=== PATIENT | female | born 1985 | race Caucasian/White ===

== ENCOUNTER 2016-11-07 17:50 | Emergency (ER) | payer OTHER ==
[2016-11-07 18:10] VITALS: BMI 33.6
[2016-11-07 18:14] VITALS: TEMP 98.8; O2SAT 100
[2016-11-07] MEDS ORDERED: Sodium Chloride 0.9% 1,000 ML IV ONE (19:14)
[2016-11-07] MEDS ORDERED: Sodium Chloride 0.9% 1,000 ML ONE (19:31)
[2016-11-07 19:57] LABS: BASO # 0.1 K/uL (0.0-0.2); BASO % 0.5 % (0.0-2.0); EOS # 0.2 K/uL (0.0-0.7); EOS % 1.5 % (0.0-4.0); HEMATOCRIT 34.3 % (34.0-47.0); LYMPH # 3.3 K/uL (1.0-4.3); LYMPH % 28.8 % (20.0-40.0); MEAN CELL VOLUME 75.4 fL (81.0-99.0); MEAN CORPUSCULAR HEMOGLOBIN 24.7 pg (27.0-31.0); MEAN CORPUSCULAR HGB CONC 32.7 g/dL (33.0-37.0); MONO # 0.9 K/uL (0.0-0.8); MONO % 7.5 % (0.0-10.0); NRBC % 0.1 % (0.0-2.0); RED CELL DISTRIBUTION WIDTH 14.2 % (11.5-14.5); WHITE BLOOD COUNT 11.4 K/uL (4.8-10.8)
--- NOTE | 2016-11-07 20:02 | C.PDOC ---
History Of Present Illness 31 year old patient presents to the emergency department complaining of vaginal bleeding for the past 2-3 days. Patient denies any associated pain. Patient's last menstrual period was on 10/12/16. Patient denies fever, shortness of breath , nausea, vomiting, abdominal pain, diarrhea, dysuria, incontinence, back pain, numbness or weakness. Time Seen by Provider: 11/07/16 19:13 Chief Complaint (Nursing): Female Genitourinary History Per: Patient History/Exam Limitations: no limitations Onset/Duration Of Symptoms: Days (2-3) Current Symptoms Are (Timing): Still Present Severity: Mild Pain Scale Rating Of: 0 Quality Of Discomfort: Other Alleviating Factors: None Recent travel outside of the [place]: No Abnormal Vaginal Bleeding: Yes Last Menstral Period: 10/12/16 Past Medical History Reviewed: Historical Data, Nursing Documentation, Vital Signs Vital Signs: Last Vital Signs Temp 98.8 F 11/07/16 18:09 Pulse 106 H 11/07/16 18:09 Resp 17 11/07/16 18:09 BP 131/84 11/07/16 18:09 Pulse Ox 100 11/07/16 20:10 Family History: States: Unknown Family Hx - Social History Hx Alcohol Use: Yes (CESSATION WITH ) Hx Substance Use: No - Immunization History Hx Tetanus Toxoid Vaccination: Yes Hx Influenza Vaccination: No (Pt declines) Hx Pneumococcal Vaccination: No Review Of Systems Except As Marked, All Systems Reviewed And Found Negative. Constitutional: Negative for: Fever Gastrointestinal: Negative for: Nausea, Vomiting, Abdominal Pain, Diarrhea Genitourinary: Positive for: Vaginal Bleeding. Negative for: Dysuria, Incontinence Musculoskeletal: Negative for: Back Pain Neurological: Negative for: Weakness, Numbness Physical Exam - Physical Exam Appears: Non-toxic, No Acute Distress Skin: Warm, Dry Head: Atraumatic, Normacephalic Eye(s): bilateral: Normal Inspection, EOMI Oral Mucosa: Moist Neck: Normal ROM, Supple Chest: Symmetrical Cardiovascular: Rhythm Regular (tachycardic) Respiratory: Normal Breath Sounds, No Rales, No Rhonchi, No Wheezing Gastrointestinal/Abdominal: Soft, No Tenderness, No Guarding, No Rebound Back: Normal Inspection, No CVA Tenderness Pelvic: No Vaginal Bleeding ((-)active), No Cervical Motion Tenderness, No Cervix Open, No Adnexal Tenderness, Other ((+)some blood in vault) Extremity: Normal ROM Neurological/Psych: Oriented x3, Normal Speech, Normal Cognition Gait: Steady ED Course And Treatment - Laboratory Results Result Diagrams: 11/07/16 19:49 11/07/16 19:49 O2 Sat by Pulse Oximetry: 100 (RA) Pulse Ox Interpretation: Normal Progress Note: Plan: -Labs. -IV fluids. -Pelvis US Disposition Counseled Patient/Family Regarding: Studies Performed, Diagnosis - Disposition Referrals: [facility] [Outside] Disposition: HOME/ ROUTINE Disposition Time: 22:00 Condition: STABLE Instructions: Threatened Miscarriage (ED), First Trimester Vaginal Bleed (ED) Forms: Gen Discharge Inst Fijian Print Language: ESTONIAN - POA Present On Arrival: None - Clinical Impression Clinical Impression: Threatened - Scribe Statement The provider has reviewed the documentation as recorded by the Scribe Pretty Benson Provider Attestation: All medical record entries made by the Scribe were at my direction and personally dictated by me. I have reviewed the chart and agree that the record accurately reflects my personal performance of the history, physical exam, medical decision making, and the department course for this patient. I have also personally directed, reviewed, and agree with the discharge instructions and disposition.
[2016-11-07 20:05] LABS: CHLORIDE 100 mmol/L (98-107)
[2016-11-07 20:06] LABS: SODIUM 135 mmol/L (132-148)
[2016-11-07 20:09] LABS: ALB/GLOB RATIO 1.1 (1.0-2.1); ALKALINE PHOSPHATASE 57 U/L (38-126); ALT/SGPT 43 U/L (9-52); AST/SGOT 22 U/L (14-36); BILIRUBIN,TOTAL 0.3 mg/dL (0.2-1.3); BLOOD UREA NITROGEN 7 mg/dL (7-17); CARBON DIOXIDE 23 mmol/L (22-30); GFR AFRICAN-AMERICAN > 60; GLUCOSE,RANDOM 85 mg/dL (65-105)
[2016-11-07 20:10] LABS: CALCIUM 8.9 mg/dl (8.6-10.4)
[2016-11-07 22:29] VITALS: BP 119/81; PULSE 96; RESP 18
--- NOTE | 2016-11-08 08:45 | US ---
PROCEDURE: OB Pelvic Ultrasound HISTORY: Vaginal bleeding COMPARISON: None available. FINDINGS: UTERUS: Gestational sac: Single intrauterine gestation. Date of delivery (Ultrasound estimated) : 07/06/2017 Uterus measures 8.9 x 4.6 x 5.4 cm. There is a single intrauterine gestational sac. Yolk sac is visualized. No pole is identified on the current examination. The mean gestational age is 5 weeks and 4 days. CERVIX: Long and closed. No cervical abnormality seen. RIGHT OVARY: Measures 3.8 x 2.4 x 3.1 cm. No mass lesion. Normal flow. LEFT OVARY: Measures 3.1 x 2.4 x 3.6 cm. No solid mass. Normal flow. There is a 2.4 x 1.9 x 2.2 cm corpus luteum cyst. FREE FLUID: None. OTHER FINDINGS: None. IMPRESSION: Single live intrauterine gestation with mean gestational age of 5 weeks and 4 days.The BON by ultrasound is 07/06/2017. There is discrepancy with the clinical gestational age by more than 2 weeks. Clinical follow-up is advised.
== END 2016-11-07 22:32 | disposition home or self-care (01) ==
LOC: C.ER 17:50
DX: O20.0 Threatened abortion (principal); Z3A.01 Less than 8 weeks gestation of pregnancy